=== PATIENT | male | born 1965 | race Caucasian/White ===

== ENCOUNTER 2018-08-19 05:38 | Inpatient (IN) ==
--- NOTE | 2018-07-30 15:33 | Anesthesiology Consultation ---
Date of Service July 30, 2018 Assessment & Plan (1) Encounter for pre-operative examination: Plan: CHECK BSG STAT AM DOS Check confirmed EKG (done at [facility] 07/30) Chart Review Chart Review: Acceptable Risk for Surgery and Patient seen in Pre Admission Testing Teaching & Discussion Instructed NPO after midnight before surgery, except medications with 15 cc of water. Medication instructions provided according to the PAT guidelines. History Surgery Operation Date: 08/19/18 07:30 Proposed Procedures p C5-C6, C6-C7 Revision Anterior Cervical Discectomy and Fusion with Iliac Crest Bone Graft; Removal Old Implants - Casey Kim, Height/Weight Height: 5 ft 8 in Weight: 127 kg Allergies Allergy/AdvReac Type Severity Reaction Status Date / Time No Known Allergies Allergy Verified 07/24/18 14:21 Medications Home Medications Medication Instructions Recorded Confirmed Last Taken acarbose 25 mg PO BID 03/19/18 07/24/18 07/24/18 hydrochlorothiazide 25 mg PO QAM 03/19/18 07/24/18 07/24/18 lisinopril 10 mg PO QAM 03/19/18 07/24/18 07/24/18 metformin 500 mg PO QAM 03/19/18 07/24/18 07/24/18 multivitamin 1 tab PO QAM 03/19/18 07/24/18 07/24/18 omeprazole 20 mg PO QAM 03/19/18 07/24/18 07/24/18 paroxetine HCl 40 mg PO QAM 03/19/18 07/24/18 07/24/18 pravastatin 40 mg PO QAM 03/19/18 07/24/18 07/24/18 Past Medical History Medical History Anxiety Degenerative disc disease Diabetes mellitus, type 2 GERD (gastroesophageal reflux disease) Hyperlipidemia Hypertension Morbid (severe) obesity due to excess calories Past Family History Family History Father Family history of diabetes mellitus Sister Family history of diabetes mellitus 2 sisters Brother Family history of diabetes mellitus Past Surgical History Surgical History History of appendectomy History of arthroscopy of left shoulder History of arthroscopy of right shoulder History of carpal tunnel release bilt; Right x2 History of cervical spinal surgery History of colonoscopy History of deviated nasal septum SURGERY FOR History of lumbar fusion Past Anesthesia History No Hx of Anesthesia Complications and No Family Hx of Anesthesia Complications 2013 decompression/fusion with Megan @ [facility]: MAC 3, ETT 7.5, no issues noted on record. History of PONV No Motion Sickness Screening History of Motion Sickness: No STOP BANG Total 5 Social History Smoking Status: Never smoker Do You Dip or Chew Tobacco: Yes (3 CANS PER WEEK - ADVISED NPO) Hx Alcohol Use: No Hx Substance Use: No substance use type: does not use Exercise / Class Metabolic Activity II 4-5 Yardwork/Stairs/Walk up hill (no CP or SOB with stairs) Review of Systems Pt denies any recent chest pain, shortness of breath, palpitations, cough, fever or URI. Physical Exam Vital Signs BP: 117/80 P: 88bpm SPO2: 98% RA T: 98.2 F R: 12 ENMT Mouth: no dental restorations, no chipped teeth and no loose teeth Thyromental Distance: < 3.5 Finger Breadths (3) Mallampati Class: I Neck + short neck, + thick neck and + facial hair (goatee, trimmed away from mouth); neck extension not limited Respiratory normal respiratory effort Auscultation: lungs clear to auscultation bilaterally Cardiovascular Rate/Rhythm: regular rate and regular rhythm Heart Sounds: no murmur Testing Electrocardiogram Date: 07/30/18 Findings: + NSR @ (78) No significant change compared to EKG of 02/26/2014. *unconfirmed Chest X-Ray Date: 07/30/18 Findings: + NAD Laboratory Results 07/30/18 16:20 07/30/18 16:20 Blood Type B Positive 07/30/18 16:20 Antibody Screen NEGATIVE 07/30/18 16:20 PT 10.7 Seconds (9.0-12.0) 07/30/18 16:20 INR 1.1 (0.9-1.1) 07/30/18 16:20 APTT 24.0 Seconds (21.0-31.0) 07/30/18 16:20
--- NOTE | 2018-07-30 15:36 | PAT Medication Instructions ---
Medication Instructions Date of Service July 30, 2018 Home Medications acarbose 25 mg PO BID hydrochlorothiazide 25 mg PO QAM lisinopril 10 mg PO QAM metformin 500 mg PO QAM multivitamin 1 tab PO QAM omeprazole 20 mg PO QAM paroxetine HCl 40 mg PO QAM pravastatin 40 mg PO QAM DO NOT take the morning of surgery acarbose 25 mg PO BID hydrochlorothiazide 25 mg PO QAM lisinopril 10 mg PO QAM metformin 500 mg PO QAM multivitamin 1 tab PO QAM Take morning of surgery With a small sip of water, OTHERWISE NOTHING TO EAT OR DRINK AFTER MIDNIGHT: omeprazole 20 mg PO QAM paroxetine HCl 40 mg PO QAM pravastatin 40 mg PO QAM Other Notes If you have any questions please call us at [phone] or [phone] or [phone] or [phone]
[2018-07-30 16:52] LABS: Basophils # (auto) 0.03 K/uL (0-0.2); Basophils % (auto) 0.3 %; Eosinophils # (auto) 0.17 K/uL (0-0.5); Eosinophils % (auto) 1.8 %; Hematocrit (blood only) 45.2 % (42-52); Hemoglobin 16.2 g/dL (14.0-18.0); Immature Granulocytes # (auto) 0.01 K/uL (0.00-0.02); Immature Granulocytes % (auto) 0.1 %; Lymphocytes # (auto) 3.55 K/uL (1.2-3.4); Mean Corpuscular Hgb Conc 35.8 g/dL (32-36); Mean Corpuscular Volume 90.9 fL (80-100); Mean Platelet Volume 10.7 fL (7.4-10.4); Monocytes # (auto) 0.63 K/uL (0.11-0.59); Monocytes % (auto) 6.7 %; Neutrophils # (auto) 4.95 K/uL (1.4-6.5); Neutrophils % (auto) 53.1 %; Platelet Count 177 K/uL (130-400); RDW Coefficient of Variation 12.4 % (11.5-14.5); RDW Standard Deviation 40.8 fL (36.4-46.3); Red Blood Count 4.97 M/uL (4.7-6.1); White Blood Count 9.34 K/uL (4.8-10.8)
--- NOTE | 2018-07-30 16:59 | XRay Report ---
TWO VIEW CHEST CLINICAL HISTORY: Preoperative examination. FINDINGS: PA and lateral chest radiographs are compared to study dated 02/26/2014 and correlated with chest CT dated 06/23/2013. The cardiomediastinal silhouette is unremarkable. The lungs and pleural spa ai are clear. There is no pneumothorax. The bony thorax appears intact. Postoperative change is note d in the lower cervical spine. IMPRESSION: No active disease in the chest. Electronically signed by: Blas Quispe M.D. 07/30/2018 4:57 PM
[2018-07-30 17:00] LABS: BUN Creatinine Ratio 11.5 (10-20); Calcium 9.1 mg/dl (8.5-10.1); Est GFR (African American) 84.6; Potassium 4.2 mmol/L (3.5-5.1)
[2018-07-30 17:08] LABS: INR 1.1 (0.9-1.1); Partial Thromboplastin Ratio 0.9; Prothrombin Time 10.7 Seconds (9.0-12.0)
--- NOTE | 2018-08-16 07:44 | History and Physical Report ---
DATE OF ADMISSION: 08/19/2018 CHIEF COMPLAINT: Neck pain, arm pain and trapezius pain, associated weakness. HISTORY OF PRESENT ILLNESS: Diogo is delightful, he is 52, he has a nonunion cervical spine. He is set up for revision surgery. He had old surgery in the past, did well initially, but he has gone on to a nonunion at C5-C6 and C6-C7. PAST MEDICAL HISTORY: Diabetes, hypertension, COPD, obesity. PAST SURGICAL HISTORY: Carpal tunnel x2, lumbar bony and fusion, shoulder surgery, and multiple level cervical spine fusion. ALLERGIES: Negative. SOCIAL HISTORY: He is , rarely drinks. No tobacco. Moderately active. REVIEW OF SYSTEMS: Twelve-system reviewed, no fever, sweats, chills. No chest pain, palpitations. No asthma, wheezing, shortness of breath. No nausea, vomiting. No urgency, frequency. He admits to numbness, tingling, joint pain, weakness, all from his diabetes. MEDICATIONS: Include metformin, lisinopril, hydrochlorothiazide. PHYSICAL EXAMINATION: GENERAL: He is alert, oriented. He is 5 feet 8 inches. He is 275. BMI well above 35. VITAL SIGNS: Blood pressure 140/80, pulse 80, respiratory rate 16. HEENT: Examination essentially normal. LUNGS: Clear to auscultation. No rales, rhonchi, wheezing. ABDOMEN: Soft, tender, bowel sounds present. NEUROLOGIC: He has some positive Spurling maneuver, Lhermitte sign, paresthesias, numbness, and tingling, weak triceps and wrist extensor strength. No hyperreflexia. 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 Procedure included a removal of old implants, revision anterior cervical discectomy and fusion, C5-C6 and C6-C7 cervical spine with iliac crest bone graft.
[2018-08-19] MEDS ORDERED: LR 15ML/HR IV SCH (06:00)
[2018-08-19] MEDS ORDERED: SODIUM CHLORIDE 0.9% 1,000 ML IV SCH (06:00)
[2018-08-19] MEDS ORDERED: CEFAZOLIN 3000MG 65 ML IV SCH (06:00)
[2018-08-19] MEDS ORDERED: HYDROmorphone INJ 2 MG/ML SYR/VIAL ONE (06:39)
[2018-08-19] MEDS ORDERED: KETAMINE HCL INJ 50 MG/ML 10 ML VIAL ONE (06:39)
[2018-08-19] MEDS ORDERED: MIDAZOLAM HCL 1 MG/ML 2ML VIAL ONE (06:39)
[2018-08-19] MEDS ORDERED: fentaNYL citrate 100 MCG/2 ML VIAL ONE ×2 (06:39→08:23)
[2018-08-19] MEDS ORDERED: PROPOFOL IV EMULSION 10 MG/ML 20 ML VIAL IV ONE (06:41)
[2018-08-19] MEDS ORDERED: ROCURONIUM BROMIDE 10 MG/ML 5 ML VIAL ONE ×2 (06:41→08:20)
[2018-08-19] MEDS ORDERED: DEXAMETHASONE SOD INJ 4 MG/ML VIAL ONE (06:41)
[2018-08-19] MEDS ORDERED: ONDANSETRON INJ 2 MG/ML 2 ML VIAL ONE (06:41)
[2018-08-19] MEDS ORDERED: LIDOCAINE HCL 2% 2 ML VIAL/AMP(20MG/ML) INFIL ONE (06:41)
[2018-08-19] MEDS ORDERED: THROMBIN FOR SOLN 20000 UNIT KIT ONE (06:55)
[2018-08-19] MEDS ORDERED: GELATIN SPONGE SZ 100 ONE ×2 (06:55→10:10)
[2018-08-19] MEDS ORDERED: BACITRACIN INJ 50,000 UNIT VIAL ONE (06:55)
[2018-08-19] MEDS ORDERED: BUPIVACAINE/EPINEPHRINE 0.5% MPF 1:200,000 30 ML VIAL ONE (06:55)
[2018-08-19] MEDS ORDERED: NovoLIN-R INSULIN PER UNIT CHARGE ONE ×2 (06:57→11:26)
--- NOTE | 2018-08-19 07:18 | History & Physical Bridge Note ---
Date of Service August 19, 2018 History & Physical Bridge Note I have examined the patient, reviewed the History & Physical and in the interval since the performance of the History & Physical I have noted the following changes of clinical significance: no changes noted
[2018-08-19] MEDS ORDERED: INSULIN HUMAN REGULAR PER UNIT 4 UNITS in SYRINGE 0 ML IV STA (07:55)
[2018-08-19] MEDS ORDERED: ePHEDrine sulfate 50 MG/ML AMP IV PRN (07:56)
[2018-08-19] MEDS ORDERED: PHENYLEPHRINE 100MCG/ML 5ML SYR IV PRN (07:56)
[2018-08-19] MEDS ORDERED: ATROPINE SULFATE 0.1 MG/ML 10ML SYR IV PRN (07:56)
[2018-08-19] MEDS ORDERED: fentaNYL citrate 100 MCG/2 ML VIAL IV PRN (07:56)
[2018-08-19] MEDS ORDERED: LABETALOL HCL IV 5 MG/ML 20ML IV PRN (07:56)
[2018-08-19] MEDS ORDERED: ONDANSETRON INJ 2 MG/ML 2 ML VIAL IV PRN ×2 (07:56→14:56)
[2018-08-19] MEDS ORDERED: MEPERIDINE HCL 25 MG/ML CARP IV PRN (07:56)
[2018-08-19] MEDS ORDERED: HYDROmorphone INJ 1 MG/ML SYRINGE IV PRN (07:56)
[2018-08-19] MEDS ORDERED: GLYCOPYRROLATE 0.2 MG/ML VIAL ONE (08:01)
[2018-08-19] MEDS ORDERED: NEOSTIGMINE METHYLSULFATE 5 MG/5 ML SYR ONE (08:01)
[2018-08-19] MEDS ORDERED: VANCOMYCIN HCL 1000MG/20ML VIAL ONE (10:10)
[2018-08-19] MEDS ORDERED: FLOSEAL HEMOSTATIC MATRIX 10ML TOP ONE ×2 (10:12→10:42)
--- NOTE | 2018-08-19 11:18 | Post Operative Brief Note ---
Immediate Post Op Note v1 Date of Surgery August 19, 2018 Pre & Post Diagnosis Operation Date: 08/19/18 07:30 Pre-Op Diagnosis: Cervical Stenosis, Cord Compression Post-Op Diagnosis: Cervical Stenosis, Cord Compression Procedure Operation Date: 08/19/18 07:30 Actual Procedures p C5-C6, C6-C7 Revision Anterior Cervical Discectomy and Fusion with Iliac Crest Bone Graft; Removal Old Implants(Not Applicable) - Casey Kim DO Surgeon Casey Kim DO Toy Consultant vilma Estimated Blood Loss 150 Findings Consistent with Post-Op Diagnosis Drains Gallardo Catheter (16 bahraini ) and Maurice Drain (1/4INCH) Complications none Overlapping Procedure I was immediately available: during the entire case.
[2018-08-19] MEDS ORDERED: INSULIN HUMAN REGULAR PER UNIT 6 UNITS in SYRINGE 0 ML IV STA (11:23)
[2018-08-19] MEDS ORDERED: METOPROLOL TARTRATE 1 MG/ML VIAL IV STA (11:27)
[2018-08-19] MEDS ORDERED: METOPROLOL TARTRATE 1 MG/ML VIAL IV ONE (11:31)
--- NOTE | 2018-08-19 11:53 | Fluoroscopy Report ---
Cervical SPINE, INTRAOPERATIVE FLUOROSCOPY HISTORY: C5 C7 Revision of ACDF. FLUOROSCOPY TIME: 11 seconds. FINDINGS: Intraoperative fluoroscopy was provided for the cervical spinal. A single fluoroscopic spot image of the cervical spine was submitted. A second levels are difficult to determine. There is evid ence for anterior cervical discectomy and fusion within the cervical spine. IMPRESSION: Fluoroscopy provided for a C5-C7 ACDF. Electronically signed by: Geovani Knox M.D. 08/19/2018 11:52 AM
[2018-08-19] MEDS ORDERED: MODERATE STRESS LEVEL ONE (12:18)
[2018-08-19] MEDS ORDERED: INSULIN PROTOCOL GOAL RANGE ONE (12:18)
--- NOTE | 2018-08-19 12:18 | Anesthesiology Progress Note ---
Date of Service August 19, 2018 Anesthesia Post Procedure Vital Signs Vital Signs: Temp Pulse Pulse Pulse Resp BP BP 08/19/18 12:11 93 H 14 134/92 08/19/18 12:10 94 H 14 08/19/18 12:05 94 H 14 137/90 08/19/18 12:00 92 H 14 146/92 H 08/19/18 11:55 93 H 16 124/92 08/19/18 11:50 91 H 16 137/92 08/19/18 11:47 98 H 16 08/19/18 11:46 93 H 15 138/99 08/19/18 11:45 97 H 14 08/19/18 11:41 90 14 142/94 H 08/19/18 11:40 95 H 15 08/19/18 11:35 97 H 14 148/97 H 08/19/18 11:32 109 H 151/99 H 08/19/18 11:30 104 H 1 L 151/99 H 08/19/18 11:25 108 H 16 143/105 H 08/19/18 11:21 112 H 13 152/95 H 08/19/18 11:20 115 H 15 08/19/18 11:17 115 H 17 158/109 H 08/19/18 11:15 122 H 14 181/108 H 08/19/18 11:13 36.0 C L 117 H 110 H 15 160/104 H 160/104 H 08/19/18 06:11 37.1 C 73 18 138/88 Pulse Ox 08/19/18 12:11 95 08/19/18 12:10 96 08/19/18 12:05 87 L 08/19/18 12:00 96 08/19/18 11:55 96 08/19/18 11:50 94 08/19/18 11:47 95 08/19/18 11:46 92 08/19/18 11:45 95 08/19/18 11:41 95 08/19/18 11:40 100 08/19/18 11:35 100 08/19/18 11:32 08/19/18 11:30 96 08/19/18 11:25 98 08/19/18 11:21 100 08/19/18 11:20 99 08/19/18 11:17 100 08/19/18 11:15 100 08/19/18 11:13 100 08/19/18 06:11 96 Pain Intensity Anterior Neck: Pain Intensity: 0 Notes Mental Status: alert / awake / arousable Patient Amnestic to Procedure: Yes Nausea / Vomiting: adequately controlled Pain: adequately controlled Airway Patency, RR, SpO2: stable & adequate BP & HR: stable & adequate Hydration State: stable & adequate Anesthetic Complications: no major complications apparent and Pt Satisfied with anesthetic care Notes: The patient did well. He is awake and comfortable. His dressing is slightly saturated, but does not appear to be bleeding at this time and his neck is not swollen. His BSG preop was elevated at 239. He was given 4 units regu lar insulin IV preop. The patient received Decadron 8 mg IV in the OR. His postop BSG was 262. He was given 6 units regular insulin IV in PACU. On recheck his BSG was 259. I spoke to pharmacy who will place him on the hyperglycemia protocol. The patient was signed out to Dr. Thompson who will monitor him in the ICU.
[2018-08-19] MEDS ORDERED: GLUCOSE 40% GEL 15 GM TUBE PO PRN (12:30)
[2018-08-19] MEDS ORDERED: GLUCOSE 10 TABS/TUBE PO PRN (12:30)
[2018-08-19] MEDS ORDERED: GLUCAGON FOR INJ 1 MG VIAL IM PRN (12:30)
[2018-08-19] MEDS ORDERED: INSULIN REGULAR 250 UNITS in SODIUM CHLORIDE 0.9% 247.5 ML IV SCH (12:30)
[2018-08-19] MEDS ORDERED: CARBOHYDRATES FOR HYPOGLYCEMIA PO PRN (12:30)
[2018-08-19] MEDS ORDERED: DEXTROSE 50% 50 ML SYRINGE IV PRN (12:30)
[2018-08-19] MEDS ORDERED: PHARMACY GLYCEMIC MGMT CONSULT PRN (12:53)
[2018-08-19] MEDS ORDERED: INSULIN HUMAN REGULAR IV BOLUS 3 UNITS in SYRINGE 0 ML IV ONE (13:00)
--- NOTE | 2018-08-19 14:10 | Post Operative Brief Note ---
Immediate Post Op Note v1 Date of Surgery August 19, 2018 Pre & Post Diagnosis Operation Date: 08/19/18 07:30 Pre-Op Diagnosis: Cervical Stenosis, Cord Compression Post-Op Diagnosis: Cervical Stenosis, Cord Compression Procedure Operation Date: 08/19/18 07:30 Actual Procedures p C5-C6, C6-C7 Revision Anterior Cervical Discectomy and Fusion with Iliac Crest Bone Graft; Removal Old Implants(Not Applicable) - Casey Kim DO Surgeon Casey Kim DO Bench Lay Out Technician vilma Estimated Blood Loss 150 Findings Consistent with Post-Op Diagnosis Drains Gallardo Catheter (16 albanian ) and Maurice Drain (1/4INCH)
--- NOTE | 2018-08-19 14:38 | Operative Report ---
DATE OF OPERATION: 08/19/2018 PREOPERATIVE DIAGNOSES: Spinal cord compression, cervical spine C5-C6 and C6-C7, and nonunion from a prior surgery, C5-C6 and C6-C7 cervical spine. POSTOPERATIVE DIAGNOSES: Spinal cord compression, cervical spine C5-C6 and C6-C7, and nonunion from a prior surgery, C5-C6 and C6-C7 cervical spine. PROCEDURES: Included an anterior cervical approach to the cervical spine, removal of prior implant that was completely a revision strategy at C5-C6 of the cervical spine, taking out the implant at C5-C6 that was imbedded in bone. The C6-C7 region was also modified as well and bone grafted. We also then put an interbody bone graft at C5-C6, bone grafted C6-C7. We also used an anterior plate approximately 36 mm in length over the construct. Structural autograft, iliac crest. SURGEON: Casey Kim DO CREDIT RISK MANAGEMENT DIRECTOR: Terrence Gonzales PA-C COMPLICATIONS: Zero. BLOOD LOSS: 150. COMORBIDITIES: Morbid obesity. DESCRIPTION OF PROCEDURE: The patient was taken to the operating room, a general intubated anesthetic provided to the patient, kept supine. Gallardo catheter administered, scrubbed, prepped and draped sterile. We made a transverse skin incision, fascial incision with careful dissection. We came down the anterior aspect of the spinal cord and vertebral bodies. We were able to measure and see the actual interspace at C5-C6 and C6-C7. We then used different revision strategies, curettes, osteotomes, high-speed bur. I was able to get off the nonunion device at C5-C6. I was in successful at C6-C7 the angulation and proceed bone loss would have been too drastic for the patient. I thought I would bone graft, this approach was taken out the implant. We then went to the iliac crest, harvested a structural autograft, placed this into the vacated discectomy site at C5-C6. We also used cancellous bone to bone graft over the old implant. This was locked down with a plate about 36-38 mm in length, transfixed with cortical cancellous screws. We irrigated thoroughly. The x-rays looked satisfactory. We closed in layers cervical spine, the iliac crest. We drained both areas. We anesthetized both areas. We extubated the patient. He was returned to PACU improved, stable. No apparent intraoperative complications. Blood loss total mostly from the iliac crest was 150 mL. No apparent complications. Sponge and needle count correct. IMPLANTS USED: By the ShotSpotter. I attest to the content of the Intraoperative Record and any orders documented therein. Any exception s are noted below.
[2018-08-19] MEDS ORDERED: NALOXONE HCL 0.4 MG/1 ML VIAL/CARP IV PRN (14:56)
[2018-08-19] MEDS ORDERED: MAGNESIUM HYDROXIDE SUSP 30 ML UDC PO PRN (14:56)
[2018-08-19] MEDS ORDERED: LORazepam 0.5 MG TAB PO PRN (14:56)
[2018-08-19] MEDS ORDERED: RACEPINEPHRINE 2.25% NEBU SOLN 0.5 ML VIAL INH PRN (14:56)
[2018-08-19] MEDS ORDERED: ACETAMINOPHEN 1,000 MG/100 ML VIAL IV PRN (14:56)
[2018-08-19] MEDS ORDERED: DEXAMETHASONE SOD PHOSPHATE 8 MG in SYRINGE 0 ML IV PRN (14:56)
--- NOTE | 2018-08-19 15:01 | Pharmacy Report ---
Pharmacy Glycemic Short Note 2 - Date of Service August 19, 2018 - Glycemic Short BSG Results (Last 24 hours): 08/19/18 08/19/18 08/19/18 06:08 11:20 11:58 POC Glucose 229 H 262 H 259 H 08/19/18 08/19/18 13:26 14:52 POC Glucose 277 H 219 H OUTPATIENT ANTIDIABETIC REGIMEN: * Acarbose 25mg PO BID w/ meals * Metformin 500mg PO daily * A1c = ? ASSESSMENT: 08/19 * Type 2 diabetic admitted for revision ACDF * Level of glycemic control prior to admission uncertain, will check A1c w/ AM labs * Pt has been hyperglycemic since admission. He was also given IV dexamethasone in OR which will likely lead to increased insulin resistance over next 24-48 hrs. * Discussed treatment options w/ pot reliner. Pt will be placed on IV insulin infusion for rapid control of hyperglycemia in the post-op setting PLAN FOR INPATIENT GLYCEMIC CONTROL: * Hold outpatient oral diabetes medications (acarbose, metformin) * IV insulin infusion per moderate stress protocol, goal range 120-180mg/dL. * He may likely be transition to SQ basal/bolus regimen in the AM if glycemic control improved PLAN FOR DISCHARGE: * ultimately dependent on results of A1c
[2018-08-19] MEDS: INSULIN ASPART 100 UNITS/ML 3 ML PEN SC SCH ×3 (15:14→21:07)
[2018-08-19] MEDS: SODIUM CHLORIDE 0.9% 1000ML 1,000 ML IV SCH (16:04)
[2018-08-19] MEDS: OXYCODONE HCL IR 5 MG TAB (IMMEDIATE RELEASE) PO PRN (16:05)
[2018-08-19] MEDS: CLINDAMYCIN 600 MG in DEXTROSE 5% 50 ML IV SCH (16:06)
--- NOTE | 2018-08-19 17:28 | Critical Care Consultation ---
Date of Consultation August 19, 2018 Assessment & Plan (1) HTN (hypertension): The patient will be continued on all his medications. (2) Back pain: Currently it is stable. (3) Degenerative lumbar spinal stenosis: Overall remains stable. (4) Diabetes mellitus: He will be started on his home medications and we also going to monitor his sugar very closely. (5) S/P cervical spinal fusion: C5-C6, C6-C7 Revision Anterior Cervical Discectomy and Fusion with Iliac Crest Bone Graft; Removal Old Implants. Follow protocol for ACDF We will follow the recommendation from Dr. Kim (6) Status post lumbar spine surgery for decompression of spinal cord: x2---2 rods, cage in place History of Present Illness Requesting Physician: The patient is a 53-year-old male with history of cervical stenosis/cord compression. Status post p C5-C6, C6-C7 Revision Anterior Cervical Discectomy and Fusion with Iliac Crest Bone Graft; Removal Old Implants Attending Physician: Casey Kim, History of Present Illness The patient is a 53-year-old male who was diagnosed with cervical stenosis, cord compression and was taken to the OR. The patient is postoperative p C5-C6, C6- C7 Revision Anterior Cervical Discectomy and Fusion with Iliac Crest Bone Graft; Removal Old Implants. Currently he is resting comfortably and not any acute distress. He was brought into the ICU for close monitoring of his respiratory system. The patient also has history of hypertension as well as diabetes mellitus. The patient had a surgery in the past and he had gone on to a nonunion at C5-C6 and C6-C7. The patient is resting comfortably and denies having any pain or shortness of breath and hemodynamically stable. Allergies Allergy/AdvReac Type Severity Reaction Status Date / Time No Known Allergies Allergy Verified 08/19/18 06:09 Home Medications Home Medications Medication Instructions Recorded Confirmed Type acarbose 25 mg PO BID 03/19/18 07/24/18 History hydrochlorothiazide 25 mg PO QAM 03/19/18 07/24/18 History lisinopril 10 mg PO QAM 03/19/18 07/24/18 History metformin 500 mg PO QAM 03/19/18 07/24/18 History multivitamin 1 tab PO QAM 03/19/18 07/24/18 History omeprazole 20 mg PO QAM 03/19/18 07/24/18 History paroxetine HCl 40 mg PO QAM 03/19/18 07/24/18 History pravastatin 40 mg PO QAM 03/19/18 07/24/18 History Patient History Medical History Anxiety Degenerative disc disease Diabetes mellitus, type 2 GERD (gastroesophageal reflux disease) Hyperlipidemia Hypertension Morbid (severe) obesity due to excess calories Surgical History History of appendectomy History of arthroscopy of left shoulder History of arthroscopy of right shoulder History of carpal tunnel release bilt; Right x2 History of cervical spinal surgery History of colonoscopy History of deviated nasal septum SURGERY FOR History of lumbar fusion Family History Father Family history of diabetes mellitus Sister Family history of diabetes mellitus 2 sisters Brother Family history of diabetes mellitus Social History Preferred Language: Sudanese Communication Ability: Effective Drum Barker Operator Required: No Beliefs That Will Affect Care: None Current Living Situation: Spouse Other Information That Helps Us Care for You: No Feels Safe at Home: Yes Smoking Status: Never smoker Hx Alcohol Use: No Hx Substance Use: No Review of Systems The patient denies having any headache dizziness or syncopal episode. He also denies having any pain in his neck where he was operated. He also denies having any chest pain or palpitations. Also denies having any shortness of breath, wheezing, orthopnea, paroxysmal nocturnal dyspnea, cough. The patient also denies having any abdominal pain or nausea or vomiting. He has some swollen extremities. He also had a surgery in his left hip and he has got chronic pain over there. Denies having any blood in the stool urine no painful micturition. Physical Exam Vital Signs (Past 24 Hours): Last Vital Signs Temp 36.7 C 08/19/18 14:46 Pulse 77 08/19/18 15:00 Resp 19 08/19/18 14:32 BP 132/77 08/19/18 15:00 Pulse Ox 94 08/19/18 15:00 Physical Exam: Middle-aged male morbidly obese not in any acute distress. Hemodynamically stable. Neck: Supple no JVD. Status post surgery and no bleeding at this time. No stridor or evidence of hematoma There is no cervical or supraclavicular adenopathy. HEENT: Pupils are reactive to light. There is no sign of jaundice. Oral cavity is clear. Chest: Bilateral air entry with clear lungs anteriorly. Heart: S1-S2 heard, no murmur, rub, gallop. Abdomen: Soft nontender bowel sounds are positive. Obese abdomen. Extremities: Trace edema bilaterally. Nontender calf muscles. Pulses are palpable. Neurological exam: The patient is alert awake and oriented x3 and is moving all his extremities. Skin: No rash no lesions seen. Postsurgical wound in the neck is covered with a gauze.
[2018-08-19] MEDS ORDERED: KETOROLAC 30 MG/ML VIAL IV PRN (17:36)
[2018-08-19] MEDS: HYDROmorphone INJ 0.5 MG/0.5 ML SYR IV PRN ×2 (17:43→23:18)
[2018-08-19] MEDS ORDERED: ACARBOSE 50 MG TAB PO SCH (21:00)
[2018-08-19] MEDS: DOCUSATE SODIUM 100 MG CAP PO SCH (21:55)
[2018-08-20] MEDS: SODIUM CHLORIDE 0.9% 1000ML 1,000 ML IV SCH (03:36)
[2018-08-20 04:35] LABS: Basophils # (auto) 0.01 K/uL (0-0.2); Basophils % (auto) 0.1 %; Hematocrit (blood only) 35.6 % (42-52); Hemoglobin 12.4 g/dL (14.0-18.0); Immature Granulocytes # (auto) 0.02 K/uL (0.00-0.02); Immature Granulocytes % (auto) 0.2 %; Lymphocytes # (auto) 1.75 K/uL (1.2-3.4); Lymphocytes % (auto) 17.2 %; Mean Corpuscular Hgb Conc 34.8 g/dL (32-36); Mean Corpuscular Volume 91.3 fL (80-100); Mean Platelet Volume 10.1 fL (7.4-10.4); Monocytes # (auto) 0.88 K/uL (0.11-0.59); Monocytes % (auto) 8.7 %; Neutrophils % (auto) 73.8 %; Platelet Count 151 K/uL (130-400); RDW Coefficient of Variation 12.5 % (11.5-14.5); RDW Standard Deviation 41.7 fL (36.4-46.3); White Blood Count 10.16 K/uL (4.8-10.8)
[2018-08-20 06:06] LABS: Estimated Average Glucose 192 mg/dl; Hemoglobin A1C 8.3 % (4.5-5.6)
[2018-08-20] MEDS ORDERED: INSULIN GLARGINE SOLOSTAR 100 UNITS/ML 3 ML PEN SC ONE (07:00)
[2018-08-20] MEDS: HYDROmorphone INJ 0.5 MG/0.5 ML SYR IV PRN (07:15)
[2018-08-20] MEDS: DOCUSATE SODIUM 100 MG CAP PO SCH ×2 (07:28→21:37)
[2018-08-20] MEDS: PANTOprazole 40 MG TAB PO SCH (07:29)
[2018-08-20] MEDS: hydroCHLOROthiazide 25 MG TAB PO SCH (07:29)
[2018-08-20] MEDS: LISINOPRIL 10 MG TAB PO SCH (07:29)
[2018-08-20] MEDS: PARoxetine HCl 20 MG TAB PO SCH (07:29)
[2018-08-20] MEDS: CLINDAMYCIN 600 MG in DEXTROSE 5% 50 ML IV SCH ×2 (07:30)
[2018-08-20] MEDS: PRAVASTATIN SOD 40 MG TAB PO SCH (07:35)
[2018-08-20] MEDS: INSULIN ASPART 100 UNITS/ML 3 ML PEN SC SCH ×4 (07:40→21:33)
[2018-08-20] MEDS ORDERED: METFORMIN HCL ER 500 MG TABCR PO SCH (09:00)
[2018-08-20] MEDS ORDERED: MULTIVITAMIN TAB PO SCH (09:00)
--- NOTE | 2018-08-20 09:17 | Anesthesiology Progress Note ---
Date of Service August 20, 2018 Anesthesia Post Procedure Vital Signs Vital Signs: Temp Pulse Pulse Pulse Resp BP BP 08/20/18 08:00 36.8 C 65 16 110/57 L 08/20/18 07:43 78 14 08/20/18 07:00 36.8 C 64 14 113/58 L 08/20/18 06:00 73 12 105/66 08/20/18 05:00 73 12 112/62 08/20/18 04:00 36.9 C 71 18 104/58 L 08/20/18 03:55 77 18 08/20/18 03:00 66 20 101/55 L 08/20/18 02:01 75 16 101/53 L 08/20/18 01:01 64 20 99/44 L 08/20/18 00:00 37.5 C 69 16 99/56 L 08/19/18 23:37 74 16 08/19/18 23:00 73 18 109/60 08/19/18 22:00 37.6 C H 76 16 110/71 08/19/18 21:12 77 18 08/19/18 21:00 83 18 115/63 08/19/18 20:00 37.7 C H 75 102/66 08/19/18 19:00 88 105/60 08/19/18 18:30 83 08/19/18 18:00 84 114/73 08/19/18 17:58 80 16 08/19/18 17:30 92 H 08/19/18 17:00 81 112/68 08/19/18 16:30 78 08/19/18 16:01 64 122/71 08/19/18 16:00 67 08/19/18 15:30 82 08/19/18 15:00 77 132/77 08/19/18 14:46 36.7 C 87 129/71 08/19/18 14:35 81 14 08/19/18 14:32 89 19 08/19/18 14:31 84 15 135/81 08/19/18 14:30 79 12 08/19/18 14:26 79 14 132/80 08/19/18 14:25 80 15 08/19/18 14:21 82 14 138/85 08/19/18 14:20 36.4 C L 86 14 08/19/18 14:16 89 15 135/82 08/19/18 14:15 82 14 08/19/18 14:11 78 14 134/80 08/19/18 14:10 87 14 08/19/18 14:06 75 13 123/82 08/19/18 14:05 91 H 14 08/19/18 14:02 88 16 08/19/18 14:01 85 12 125/84 08/19/18 14:00 82 13 08/19/18 13:56 78 14 137/83 08/19/18 13:55 82 14 08/19/18 13:51 75 14 136/87 08/19/18 13:50 79 15 08/19/18 13:46 82 15 132/79 08/19/18 13:45 80 14 08/19/18 13:41 80 14 128/86 08/19/18 13:40 82 13 08/19/18 13:36 96 H 14 140/82 08/19/18 13:35 90 14 08/19/18 13:32 79 14 08/19/18 13:31 75 10 L 135/85 08/19/18 13:30 90 15 140/82 08/19/18 13:20 82 12 131/87 08/19/18 13:16 83 10 L 124/92 08/19/18 13:10 89 7 L 136/94 08/19/18 13:07 83 11 L 08/19/18 13:06 87 12 119/88 08/19/18 13:02 96 H 15 08/19/18 13:01 84 14 130/90 08/19/18 13:00 85 12 08/19/18 12:55 84 14 135/89 08/19/18 12:51 36.6 C 08/19/18 12:50 85 15 132/83 08/19/18 12:47 87 14 08/19/18 12:46 92 H 14 116/79 08/19/18 12:45 95 H 16 08/19/18 12:40 82 16 111/86 08/19/18 12:35 88 14 131/86 08/19/18 12:31 96 H 18 126/85 08/19/18 12:30 83 14 08/19/18 12:25 85 16 08/19/18 12:20 88 16 133/85 08/19/18 12:15 91 H 16 137/88 08/19/18 12:11 93 H 14 134/92 08/19/18 12:10 94 H 14 08/19/18 12:05 94 H 14 137/90 08/19/18 12:00 36.7 C 92 H 14 146/92 H 08/19/18 11:55 93 H 16 124/92 08/19/18 11:50 91 H 16 137/92 08/19/18 11:47 98 H 16 08/19/18 11:46 93 H 15 138/99 08/19/18 11:45 97 H 14 08/19/18 11:41 90 14 142/94 H 08/19/18 11:40 95 H 15 08/19/18 11:35 97 H 14 148/97 H 08/19/18 11:32 109 H 151/99 H 08/19/18 11:30 104 H 1 L 151/99 H 08/19/18 11:25 108 H 16 143/105 H 08/19/18 11:21 112 H 13 152/95 H 08/19/18 11:20 115 H 15 08/19/18 11:17 115 H 17 158/109 H 08/19/18 11:15 122 H 14 181/108 H 08/19/18 11:13 36.0 C L 117 H 110 H 15 160/104 H 160/104 H Pulse Ox 08/20/18 08:00 94 08/20/18 07:43 98 08/20/18 07:00 98 08/20/18 06:00 98 08/20/18 05:00 98 08/20/18 04:00 96 08/20/18 03:55 96 08/20/18 03:00 96 08/20/18 02:01 99 08/20/18 01:01 08/20/18 00:00 96 08/19/18 23:37 98 08/19/18 23:00 94 08/19/18 22:00 95 08/19/18 21:12 98 08/19/18 21:00 94 08/19/18 20:00 97 08/19/18 19:00 95 08/19/18 18:30 94 08/19/18 18:00 95 08/19/18 17:58 98 08/19/18 17:30 97 08/19/18 17:00 95 08/19/18 16:30 96 08/19/18 16:01 95 08/19/18 16:00 89 L 08/19/18 15:30 96 08/19/18 15:00 94 08/19/18 14:46 96 08/19/18 14:35 97 08/19/18 14:32 97 08/19/18 14:31 94 08/19/18 14:30 95 08/19/18 14:26 96 08/19/18 14:25 96 08/19/18 14:21 96 08/19/18 14:20 95 08/19/18 14:16 96 08/19/18 14:15 96 08/19/18 14:11 95 08/19/18 14:10 96 08/19/18 14:06 97 08/19/18 14:05 96 08/19/18 14:02 96 08/19/18 14:01 96 08/19/18 14:00 96 08/19/18 13:56 97 08/19/18 13:55 97 08/19/18 13:51 96 08/19/18 13:50 96 08/19/18 13:46 95 08/19/18 13:45 96 08/19/18 13:41 95 08/19/18 13:40 95 08/19/18 13:36 95 08/19/18 13:35 96 08/19/18 13:32 95 08/19/18 13:31 97 08/19/18 13:30 95 08/19/18 13:20 96 08/19/18 13:16 93 08/19/18 13:10 93 08/19/18 13:07 97 08/19/18 13:06 94 08/19/18 13:02 97 08/19/18 13:01 95 08/19/18 13:00 94 08/19/18 12:55 93 08/19/18 12:51 08/19/18 12:50 96 08/19/18 12:47 95 08/19/18 12:46 97 08/19/18 12:45 95 08/19/18 12:40 95 08/19/18 12:35 93 08/19/18 12:31 96 08/19/18 12:30 95 08/19/18 12:25 94 08/19/18 12:20 94 08/19/18 12:15 95 08/19/18 12:11 95 08/19/18 12:10 96 08/19/18 12:05 87 L 08/19/18 12:00 95 08/19/18 11:55 96 08/19/18 11:50 94 08/19/18 11:47 95 08/19/18 11:46 92 08/19/18 11:45 95 08/19/18 11:41 95 08/19/18 11:40 100 08/19/18 11:35 100 08/19/18 11:32 08/19/18 11:30 96 08/19/18 11:25 98 08/19/18 11:21 100 08/19/18 11:20 99 08/19/18 11:17 100 08/19/18 11:15 100 08/19/18 11:13 100 Pain Intensity Anterior Neck: Pain Intensity: 3 Notes Mental Status: alert / awake / arousable and participated in evaluation Patient Amnestic to Procedure: Yes Nausea / Vomiting: see Notes below Pain: adequately controlled Airway Patency, RR, SpO2: stable & adequate BP & HR: stable & adequate Hydration State: stable & adequate Anesthetic Complications: no major complications apparent and Pt Satisfied with anesthetic care
[2018-08-20] MEDS: OXYCODONE HCL IR 5 MG TAB (IMMEDIATE RELEASE) PO PRN ×3 (09:48→18:32)
[2018-08-20] MEDS ORDERED: [UNRECOGNIZED DRUG - REMARK] ONE (10:00)
--- NOTE | 2018-08-20 11:26 | Pharmacy Report ---
Pharmacy Glycemic Short Note 2 - Date of Service August 20, 2018 - Glycemic Short BSG Results (Last 24 hours): 08/19/18 08/19/18 08/19/18 11:20 11:58 13:26 POC Glucose 262 H 259 H 277 H 08/19/18 08/19/18 08/19/18 14:52 16:11 17:01 POC Glucose 219 H 185 H 189 H 08/19/18 08/19/18 08/19/18 18:06 19:10 20:00 POC Glucose 176 H 153 H 137 H 08/19/18 08/19/18 08/20/18 21:06 23:11 00:03 POC Glucose 139 H 113 H 98 08/20/18 08/20/18 08/20/18 00:59 02:01 02:58 POC Glucose 106 H 100 H 110 H 08/20/18 08/20/18 08/20/18 04:04 05:01 06:09 POC Glucose 107 H 107 H 114 H 08/20/18 08/20/18 08/20/18 06:58 07:59 08:56 POC Glucose 116 H 128 H 122 H OUTPATIENT ANTIDIABETIC REGIMEN: * Acarbose 25mg PO BID w/ meals * Metformin 500mg PO daily * A1c = ? ASSESSMENT: 08/20 * BSGs well controlled with insulin drip * Drip running at 1.2 units/hr this AM and BSGs in 110-120's range * Would anticipate the effects of dexamethasone to be wearing off over the course of the day today - will transition to SQ regimen this AM given low infusion rates * Initial SQ regimen will be based upon weight and mild-moderate stress level given pt's body habitus. * Will follow BSG pattern and adjust accordingly * If renal fxn permits, will resume metformin tomorrow AM 08/19 * Type 2 diabetic admitted for revision ACDF * Level of glycemic control prior to admission uncertain, will check A1c w/ AM labs * Pt has been hyperglycemic since admission. He was also given IV dexamethasone in OR which will likely lead to increased insulin resistance over next 24-48 hrs. * Discussed treatment options w/ blowing engineer. Pt will be placed on IV insulin infusion for rapid control of hyperglycemia in the post-op setting PLAN FOR INPATIENT GLYCEMIC CONTROL: * Lantus 10 units SQ BID- 1st dose STAT this AM * DC insulin drip ~ 3 hrs after first Lantus dose given * Novolog SQ ACHS * Goal range: 110-140mg/dL * Correction factor: 25mg/dL/unit * Carb ratio: 1 unit per 8gm CHO consumed PLAN FOR DISCHARGE: * ultimately dependent on results of A1c
[2018-08-20] MEDS: INSULIN GLARGINE SOLOSTAR 100 UNITS/ML 3 ML PEN SC SCH (21:35)
[2018-08-21] MEDS: OXYCODONE HCL IR 5 MG TAB (IMMEDIATE RELEASE) PO PRN ×2 (03:08→08:09)
[2018-08-21 06:34] LABS: Creatinine Clr Calc Pharmacy 115.5 ml/min; Est GFR (African American) 104.3
[2018-08-21 06:45] VITALS: BP 101/65; TEMP 98.8
[2018-08-21] MEDS: DOCUSATE SODIUM 100 MG CAP PO SCH (08:10)
[2018-08-21] MEDS: PRAVASTATIN SOD 40 MG TAB PO SCH (08:10)
[2018-08-21] MEDS: PANTOprazole 40 MG TAB PO SCH (08:10)
[2018-08-21] MEDS: PARoxetine HCl 20 MG TAB PO SCH (08:10)
[2018-08-21] MEDS: hydroCHLOROthiazide 25 MG TAB PO SCH (08:11)
[2018-08-21] MEDS: LISINOPRIL 10 MG TAB PO SCH (08:11)
[2018-08-21] MEDS: INSULIN GLARGINE SOLOSTAR 100 UNITS/ML 3 ML PEN SC SCH (08:12)
[2018-08-21] MEDS: INSULIN ASPART 100 UNITS/ML 3 ML PEN SC SCH (08:13)
[2018-08-21 08:15] VITALS: O2SAT 96
--- NOTE | 2018-08-21 08:56 | Discharge Summary ---
He is alert, oriented. He had very rigorous cervical spine surgery, was in intensive care one evening. Back at the floor, he improved in his neurological status and his pain status. His vital signs remained stable. He had no chest pain, shortness of breath. He is stable for discharge. He will be discharged home later today. He has instructions, warnings, precautions on the chart. He was given those instructions as well in the office. He has a prescription on his chart as well and a followup appointment in approximately 10 days.
[2018-08-21 10:04] VITALS: PULSE 95
[2018-08-21] MEDS ORDERED: BISACODYL 5 MG TABEC PO PRN (11:19)
== END 2018-08-21 11:26 | disposition home or self-care (01) | DRG 472 ==
LOC: ASU 05:38 → 1E 11:21 → 3E 08-20 10:16